=== PATIENT | female | born 2005 | race Hispanic/Latino ===

== ENCOUNTER 2025-07-02 08:40 | Day surgery (SDC) | payer OTHER ==
[2025-07-02] MEDS ORDERED: Acetaminophen 500 MG TAB ONE (08:52)
[2025-07-02] MEDS: Acetaminophen 500 MG TAB PO SCH (08:53)
[2025-07-02] MEDS: Iron Sucrose Complex 500 MG in Sodium Chloride 0.9% 250 ML 250 ML IVPB SCH (09:51)
[2025-07-02 15:19] VITALS: BP 114/72; TEMP 97.7
== END 2025-07-02 14:58 | disposition home or self-care (01) ==
LOC: ONC/OP 08:40
PROVIDERS: ATTEND Family Medicine
DX: O99.019 Anemia complicating pregnancy, unspecified trimester (principal); Z3A.00 Weeks of gestation of pregnancy not specified
CPT/HCPCS: 96365; 96366; J1756; J7050